=== PATIENT | male | born 1950 | race Caucasian/White ===

== ENCOUNTER 2017-09-12 11:11 | Emergency (ER) | payer OTHER, MEDICARE ==
[2017-09-12] MEDS ORDERED: DIPHTH,PERTUSS(ACELL),TET 0.5 ML DISP.SYRIN IM ONE (11:24)
[2017-09-12 11:39] VITALS: TEMP 98.4; BMI 25.4
--- NOTE | 2017-09-12 12:13 | PDOC ---
History of Present Illness <Kendell Hawkins - Last Filed: 09/12/17 12:57> - General History Source: Patient Exam Limitations: No Limitations - History of Present Illness Initial Comments: 09/12/17 12:07 66-year-old male history of hypertension currently on a baby aspirin here today status post fall from a ladder approximately 2 stories landing on his side. Patient states he did hit his head sustained an abrasion to the left forehead. Also complaining of left elbow pain where he also sustained an abrasion. Has been ambulating since denies LOC. No complaints of headache no nausea no vomiting currently no complaints of neck or back pain. Happened just prior to arrival <Caridad Wood - Last Filed: 09/12/17 13:15> - General Chief Complaint: Injury Stated Complaint: FALL FROM SCAFFOLDING APPROXIMATE 15 FEET LACERA Time Seen by Provider: 09/12/17 11:22 Past History <Kendell Hawkins - Last Filed: 09/12/17 12:57> - Past Medical History COPD: No Hypercholesterolemia: Yes - Immunization History TDAP Vaccination: No Immunization Up to Date: Yes - Suicide/Smoking/Psychosocial Hx Smoking History: Former smoker Have you smoked in the past 12 months: No If you are a former smoker, when did you quit?: 1986 Information on smoking cessation initiated: No Hx Alcohol Use: No Drug/Substance Use Hx: No Substance Use Type: None <Caridad Wood - Last Filed: 09/12/17 13:15> - Past Medical History Allergies/Adverse Reactions: Allergies Allergy/AdvReac Type Severity Reaction Status Date / Time aspirin AdvReac Intermediate LOWERS Verified 09/12/17 11:15 PLATELET COUNT Home Medications: Ambulatory Orders Aspirin 81 mg PO DAILY 09/12/17 Review of Systems - Review of Systems Constitutional: No: Chills, Diaphoresis, Fever Respiratory: No: Cough, Orthopnea Cardiac (ROS): No: Chest Pain : No: Burning Musculoskeletal: Yes: Joint Pain. No: Back Pain, Gout Integumentary: Yes: Other (abrasion) Neurological: No: Headache, Numbness All Other Systems: Reviewed and Negative <Caridad Wood - Last Filed: 09/12/17 13:15> *Physical Exam - Vital Signs Last Vital Signs Temp Pulse Resp BP Pulse Ox 98.4 F 80 16 169/94 97 09/12/17 11:14 09/12/17 11:14 09/12/17 11:14 09/12/17 11:14 09/12/17 11:14 <Kendell Hawkins - Last Filed: 09/12/17 12:57> - Vital Signs Last Vital Signs Temp Pulse Resp BP Pulse Ox 98.4 F 80 16 169/94 97 09/12/17 11:14 09/12/17 11:14 09/12/17 11:14 09/12/17 11:14 09/12/17 11:14 - Physical Exam General Appearance: Yes: Appropriately Dressed HEENT: positive: JARETT, Normal ENT Inspection, Other (abrasion left forehead. EOMI, PERRL. ) Neck: positive: Trachea midline, Other (no midline cervical spine tenderness). negative: Tender Respiratory/Chest: positive: Lungs Clear, Normal Breath Sounds. negative: Chest Tender Cardiovascular: positive: Regular Rhythm, Regular Rate, S1, S2 Gastrointestinal/Abdominal: positive: Normal Bowel Sounds, Flat, Soft. negative : Tender Musculoskeletal: positive: Normal Inspection. negative: CVA Tenderness Extremity: positive: Normal Capillary Refill, Normal Inspection, Normal Range of Motion. negative: Tender Integumentary: positive: Dry, Warm, Other (superficial abrasion left elbow. FROM no bony tenderness. shoulder, wrist NT FROM. superficial abrasion left lateral forehead.) Neurologic: positive: Fully Oriented, Alert, Normal Mood/Affect, Motor Strength 5/5, Other (GCS 15. no midline spinal tenderness at T/L/S spine. ) <Caridad Wood - Last Filed: 09/12/17 13:15> Procedures - Laceration/Wound Repair Left Face Wound Length: to 2.5 cm Wound Explored: clean, no foreign body present Wound's Depth, Shape: irregular Irrigated w/ Saline: Yes Anesthesia: 2% Lidocaine w/ Epi Amount of Anesthetic (ccs): 3 Wound Repaired With: Sutures Suture Size/Type: 4:0, other (chromic gut) Number of Sutures: 3 Layer Closure: No Sterile Dressing Applied: Yes <Kendell Hawkins - Last Filed: 09/12/17 12:57> ED Treatment Course - Medications Given in the ED: ED Medications Discontinued Medications Generic Name Dose Route Start Last Admin Trade Name Freq PRN Reason Stop Dose Admin Diphtheria/Tetanus/Acell Pertussis 0.5 ml 09/12/17 11:24 09/12/17 11:41 Boostrix - IM 09/12/17 11:25 0.5 ml .ONCE ONE Administration <Kendell Hawkins - Last Filed: 09/12/17 12:57> - RADIOLOGY Radiology Studies Ordered: Category Date Time Status HEAD CT WITH CONTRAST [CT] Stat CT Scan 09/12/17 11:24 Ordered - Medications Given in the ED: ED Medications Discontinued Medications Generic Name Dose Route Start Last Admin Trade Name Floridalma PRN Reason Stop Dose Admin Diphtheria/Tetanus/Acell Pertussis 0.5 ml 09/12/17 11:24 09/12/17 11:41 Boostrix - IM 09/12/17 11:25 0.5 ml .ONCE ONE Administration <Caridad Wood - Last Filed: 09/12/17 13:15> Medical Decision Making - Medical Decision Making 09/12/17 12:10 66 yo M s/p fall from ladder, no loc c/o elbow pain and head injury. due to baby aspirin, will ct head. tetanus unknown will give today. offered motrin or tylenol pt declined pain meds. superficial wound care with bacitracin. if ct head negative dc to home. 09/12/17 13:00 stellate wound left forehead, irregular borders, compression of tissue and avulsion of tissue, sutured by Dr. Hawkins asborbable chromic gut suture. tolerated well. I was present for marcos portions or procedure. sterile dressing applied. <Caridad Wood - Last Filed: 09/12/17 13:15> *DC/Admit/Observation/Transfer <Kendell Hawkins - Last Filed: 09/12/17 12:57> <Caridad Wood - Last Filed: 09/12/17 13:15> Diagnosis at time of Disposition: Head injury due to trauma, Abrasion, elbow w/o infection, Laceration of skin of face - Discharge Dispostion Disposition: HOME Condition at time of disposition: Improved - Patient Instructions Printed Discharge Instructions: DI for Closed Head Injury, DI for Abrasion, How to Care for Absorbable Sutures Additional Instructions: A CAT scan of the head today was unremarkable. He will be sore for 3-5 days. He can take ibuprofen 600 mg every 6-8 hours taken with food. He can apply bacitracin ointment to your superficial abrasions twice daily. your stitches are absorbable and do not require removal as they will dissolve on their own. Keep clean and dry with mild soap and warm water. Covered while working outside avoid exposure to sunlight his increased scarring return for any redness swelling purulent exudate or other signs of infection also return for any headache nausea vomiting weakness or any concerns follow up with regular doctor as needed. you were Given a tetanus shot today
[2017-09-12] MEDS ORDERED: LIDO 2%/EPI 1:200000 PRESRVFRE (20 ML SDVIAL) ONE (12:29)
[2017-09-12 13:26] VITALS: BP 148/87; PULSE 84
== END 2017-09-12 13:26 | disposition home or self-care (01) ==
LOC: FER 11:11
PROC: 0HQ1XZZ Repair Face Skin, External Approach (ICD-10-PCS; principal; 2017-09-12)
PROC: 3E0234Z Introduction of Serum, Toxoid and Vaccine into Muscle, Percutaneous Approach (ICD-10-PCS; 2017-09-12)
DX: S01.81XA Laceration without foreign body of other part of head, initial encounter (principal); S09.90XA Unspecified injury of head, initial encounter; S50.312A Abrasion of left elbow, initial encounter; W11.XXXA Fall on and from ladder, initial encounter; Y93.89 Activity, other specified; Y92.89 Other specified places as the place of occurrence of the external cause; I10 Essential (primary) hypertension; Z79.82 Long term (current) use of aspirin; Z87.891 Personal history of nicotine dependence; Z88.6 Allergy status to analgesic agent
CPT/HCPCS: 12011-25; 70460-TC; 90471; 90715; 99283-25

== ENCOUNTER 2021-04-11 16:25 | Emergency (ER) | payer OTHER, MEDICARE ==
[2021-04-11 16:42] VITALS: BP 134/63; PULSE 73; BMI 24.5
[2021-04-11] MEDS ORDERED: IBUPROFEN 600 MG TABLET (FP) PO ONE ×2 (16:47→16:54)
[2021-04-11 17:52] LABS: ALBUMIN 3.9 g/dl (3.4-5.0); BILIRUBIN,TOTAL 0.4 mg/dl (0.2-1); CALCIUM 8.8 mg/dl (8.5-10); CREATININE 0.8 mg/dl (0.55-1.3); TOT PROT 6.8 g/dl (6.4-8.2)
[2021-04-11 18:17] LABS: BASO % 0.2 % (0-2.0); EOS % 0.1 % (0-4.5); HEMATOCRIT 42.3 % (35.4-49); HEMOGLOBIN 14.5 GM/dL (11.7-16.9); LYMPH % 7.7 % (8-40); MCH 30.5 pg (25.7-33.7); MCHC 34.2 g/dl (32.0-35.9); MEAN CELL VOLUME 89.2 fl (80-96); MEAN PLT VOLUME 10.2 fl (7.5-11.1); MONO % 11.3 % (3.8-10.2); NEUT % 80.7 % (42.8-82.8); PLATELET COUNT 140 10^3/uL (134-434); RBC 4.75 M/mm3 (4.00-5.60); RDW 12.9 % (11.9-15.9); WHITE BLOOD COUNT 5.1 K/mm3 (4.0-10.0)
[2021-04-11] MEDS ORDERED: AMOX TR/POT CLAV 875MG/125MG TABLETS (FP) PO ONE (18:33)
[2021-04-11] MEDS ORDERED: AZITHROMYCIN 250 MG TABLET PO ONE (18:33)
[2021-04-11] MEDS ORDERED: AMOX TR/POT CLAV 875MG/125MG TABLETS (FP) ONE (18:34)
[2021-04-11 18:49] VITALS: TEMP 99.1
== END 2021-04-11 19:05 | disposition home or self-care (01) ==
LOC: FER 16:25
DX: J18.9 Pneumonia, unspecified organism (principal)
CPT/HCPCS: 36415; 71046-TC-FY; 80053; 81003; 83605; 85025; 87040; 87086; 87804; 99284-25; C9803; U0003; U0005

== ENCOUNTER 2021-09-04 09:07 | Emergency (ER) | payer OTHER, MEDICARE ==
[2021-09-04 09:18] VITALS: BP 156/63; PULSE 59; TEMP 97.1; BMI 25.4
== END 2021-09-04 10:51 | disposition home or self-care (01) ==
LOC: FER 09:07
DX: S80.12XA Contusion of left lower leg, initial encounter (principal); S82.402A Unspecified fracture of shaft of left fibula, initial encounter for closed fracture; W10.1XXA Fall (on)(from) sidewalk curb, initial encounter
CPT/HCPCS: 73590-TC-LT-FY; 93971-TC; 99284-25